=== PATIENT | male | born 1950 | race African-American/Black ===

== ENCOUNTER 2016-09-27 08:28 | Emergency (ER) | payer MEDICAID ==
[2016-09-27] MEDS ORDERED: Sodium Chloride 0.9% 1,000 ML ONE (10:36)
[2016-09-27 10:51] LABS: #Basophils 0.1 thou/uL (0.0-0.2); #Eosinphils 0.1 thou/uL (0.0-0.7); #Lymphocytes 1.2 thou/uL (1.20-3.40); #Monocytes 0.6 thou/uL (0.11-0.59); #Neutrophils 4.7 thou/uL (1.40-6.50); %Basophils 1.4 % (0.0-1.0); %Eosinophils 1.9 % (0.0-10.0); %Lymphocytes 17.5 % (21.0-51.0); %Monocytes 8.8 % (0.0-10.0); Hematocrit 53.2 % (42.0-52.0); Mean Platelet Volume 9.4 fL (7.4-10.4); Red Blood Cell (RBC) Count 6.49 mill/uL (4.70-6.10); White Blood Cell (WBC) Count 6.6 thou/uL (4.8-10.8)
--- NOTE | 2016-09-27 10:54 | RAD ---
PORTABLE CHEST: Date: 09/27/16 HISTORY: Dizziness. Vertigo. FINDINGS: The heart size is upper normal. The lung reyes are well aerated and are clear. No evidence of vascu lar congestion. IMPRESSION: No acute abnormality. POS: [id number]
[2016-09-27 10:56] LABS: ALT (SGPT) 52 U/L (0-55); AST (SGOT) 39 U/L (5-34); Alkaline Phosphatase 70 U/L (40-150); Anion Gap 14 mmol/L (10-20); BUN (Urea Nitrogen) 24 mg/dL (8.4-25.7); Bilirubin, Total 0.6 mg/dL (0.2-1.2); Calc. Creatinine Clearance 0 mL/min (70-130); Calcium 8.7 mg/dL (7.8-10.44); Carbon Dioxide 23 mmol/L (23-31); Chloride 108 mmol/L (98-107); Estimated GFR-MDRD 90; Globulin 2.8 g/dL (2.4-3.5); Protein, Total 6.6 g/dL (5.8-8.1)
[2016-09-27 11:50] LABS: Bilirubin Negative (Negative); Blood, Urine Negative (Negative); Glucose, Urine (Dipstick) Negative (Negative); Ketone, Urine Negative (Negative); Nitrite Negative (Negative); Protein, Urine (Dipstick) > or equal to 300 mg/dL (Neg-Trace); Urobilinogen 0.2 mg/dL (0.2-1.0)
[2016-09-27 12:02] LABS: Bacteria/HPF Rare-Few HPF (None Seen); RBC/HPF None Seen HPF (0-3); Squamous Epithelial 0-3 HPF (0-3)
[2016-09-27 12:08] LABS: Methadone Not Detected (NotDetected); Methamphetamine Not Detected (NotDetected)
[2016-09-27] MEDS ORDERED: Hydrochlorothiazide 25 MG TAB ONE (12:23)
== END 2016-09-27 12:45 | disposition home or self-care (01) ==
LOC: NAV ERS 08:28
DX: R07.89 Other chest pain (principal); Z76.0 Encounter for issue of repeat prescription; E11.42 Type 2 diabetes mellitus with diabetic polyneuropathy; I10 Essential (primary) hypertension; Z87.891 Personal history of nicotine dependence; Z79.82 Long term (current) use of aspirin; Z79.899 Other long term (current) drug therapy
CPT/HCPCS: 71010; 80053; 80306; 81003; 81015; 82553; 84484; 85025; 93005; 96360; J7050